=== PATIENT | female | born 1995 | race Caucasian/White ===

== ENCOUNTER 2019-10-05 13:15 | Outpatient (RCR) | payer OTHER, SELFPAY ==
--- NOTE | ~2019-10-05 | US_ITS ---
EXAMINATION: US OB follow up DATE: 10/05/2019 15:17 INDICATION: Decreased movement. TECHNIQUE: Real-time ultrasound of the pelvis was performed. COMPARISON: None. FINDINGS: There is a single living fetus in vertex presentation. The placenta is anterior. heart rate is 152 beats per minute (bpm). The amniotic fluid index is 9.8 cm, which is normal. The following biometric data were obtained: Biparietal diameter (BPD): 8.7 cm; head circumference (HC): 31.2 cm; abdominal circumference (AC): 30 .3 cm; femur length (FL): 6.6 cm. These measurements are concordant. Estimated weight is 2413 g +/- 362 g, which correlates with 63rd percentile when 11/18/19 is use d as estimated date of delivery. As single measurements, these parameters are each equal to the following estimated gestational ages: BPD: 35 weeks 1 days. HC: 35 weeks 0 days. AC: 34 weeks 2 days. FL: 34 weeks 1 days. estimated gestational age based solely on measurements from this exam is 34 weeks 5 days +/- 2 weeks 3 days. IMPRESSION: 1. Single living fetus in vertex presentation. 2. Estimated weight is 2413 g +/- 362 g, which correlates with 63rd percentile when 11/18/19 is used as estimated date of delivery. Reviewed, dictated and finalized at location A. IMPRESSION: 1. Single living fetus in vertex presentation. 2. Estimated weight is 2413 g +/- 362 g, which correlates with 63rd perc entile when 11/18/19 is used as estimated date of delivery.
[2019-10-05 14:40] VITALS: BP 119/77
== END 2019-11-14 07:56 | disposition home or self-care (01) ==
LOC: ANHOBOP 13:15
PROVIDERS: PCP Nurse Practitioner Family; Visit Provider Obstetrics & Gynecology
DX: O36.8130 Decreased fetal movements, third trimester, not applicable or unspecified (principal); Z3A.33 33 weeks gestation of pregnancy
CPT/HCPCS: 59025; 76816

== ENCOUNTER 2019-11-11 06:00 | Inpatient (IN) | payer OTHER, SELFPAY ==
[2019-11-11] VITALS (75 sets, daily range): BP systolic 106–169; BP diastolic 61–119; PULSE 80–138; RESP 20; TEMP 36.7–37.2; O2SAT 93–100; BMI 45.2
--- NOTE | 2019-11-11 06:56 | LDADM ---
This patient, Lynn Coy, was admitted to Labor/Delivery/Recovery 105 on 11/11/19 at 06:00. Plans for labor, pain management and were discussed with patient. Patient/family oriented to hospital policies and general routines including ID bracelet, bed and alarms, visiting hours, pain management, procedures, bathroom and other care routines, personal items, smoking policy, room service/diet and guest tray routines, security routines, and visiting hours. Patient/Family are encouraged to report perceived risks to care and to ask questions if they do not understand what they are told or what they should do. See OBIX for further documentation.
[2019-11-11 07:19] LABS: Basophils Percent Auto 0.2 % (0.2-1.2); Eosinophils Absolute Auto 0.1 K/mm3 (0-0.3); Eosinophils Percent Auto 1.1 % (0-4.4); Hematocrit 34.1 % (37.0-47.0); Hemoglobin 10.8 g/dL (12.0-15.0); Immature Granulocyte Absolute 0.04 K/mm3 (0.00-0.031); Immature Granulocyte Percent A 0.4 % (0-0.5); Lymphocytes Absolute Auto 2.47 K/mm3 (0.9-3.2); Lymphocytes Percent Auto 23.7 % (18.3-44.2); Mean Corpuscular HGB Conc 31.7 g/dl (32-36); Mean Corpuscular Hemoglobin 24.1 pg (26-34); Mean Corpuscular Volume 76.1 fl (80-100); Mean Platelet Volume 11.2 fl (7.4-10.4); Monocytes Absolute Auto 0.6 K/mm3 (0.1-0.6); Monocytes Percent Auto 5.9 % (2.6-8.5); Neutrophils Absolute Auto 7.2 K/mm3 (1.3-6.7); Neutrophils Percent Auto 68.7 % (45.5-73.1); Platelet Count Result 252 k/mm3 (150-375); Red Blood Count 4.48 M/mm3 (4.2-5.4); Red Cell Distribution Width 15.7 % (11.5-14.5); White Blood Count 10.4 K/mm3 (4.5-10.0)
--- NOTE | 2019-11-11 07:41 | PM.IMHP ---
H&P: HPI History of Present Illness Chief complaint: Induction of Labor Narrative: Lynn Coy is a 23 year old female at 39w0d gestation admitted for elective induction of labor at term. Doing well, no concerns. Good movement. No contractions. Review of Systems Constitutional: Constitutional: Reports no additional constitutional complaints Respiratory: Respiratory: Reports no additional respiratory complaints Gastrointestinal: Gastrointestinal: Reports no additional gastrointestinal complaints Genitourinary: Genitourinary: Reports no additional female genitourinary complaints Musculoskeletal: Musculoskeletal: Reports no additional musculoskeletal complaints Neurologic: Reports system reviewed and no additional complaints, except as documented Psychiatric: Psychiatric: Reports no additional psychiatric complaints [facility] Past Medical History Medical History (Updated 11/11/19 @ 07:45 by Stephan Vega DO) Anxiety Family History Family History Mother Fatty liver disease, nonalcoholic PCOS (polycystic ovarian syndrome) Social History Social History Smoking status: Former smoker Tobacco type: cigarettes Second hand tobacco smoke exposure: No Substance use: never Gender identity (if verbalized by the patient): Female Spiritual care concerns: No Meds Home Medications and Allergies Home Medications Medication Instructions Recorded Confirmed Type PNV no.[id number] 2 tablet PO 10/22/19 History [ Gummies] escitalopram oxalate [Lexapro] 10 mg PO DAILY 10/22/19 10/22/19 History ferrous sulfate [Iron (ferrous 325 mg PO DAILY 10/22/19 10/22/19 History sulfate)] Allergies Allergy/AdvReac Type Severity Reaction Status Date / Time latex Allergy Unknown Hives / Verified 09/20/18 13:52 Red Face Penicillins Allergy Unknown Anaphylactic Verified 09/20/18 13:52 Shock Cat Dander Allergy Mild ITCHING, Uncoded 09/20/18 13:53 Vital Signs Vital Signs - 24 hr 11/11/19 06:30 11/11/19 06:31 11/11/19 07:02 Pulse Rate 116 H 138 H 114 H Blood Pressure 132/91 H 119/78 132/83 11/11/19 07:31 Pulse Rate 114 H Blood Pressure 144/93 H Exam Const: General: comfortable and no acute distress Resp: Effort & Inspection: normal respiratory effort Cardio: Rate: regular rate GI: GI Palp: Yes Soft to palpation Other: gravid : External Female Exam: normal external appearance Other: Cervix: 3/50/-2. AROM performed, clear fluid @0740 Skin: General skin exam: normal color Neuro: Speech: normal speech Psych: Mental Status: mental status grossly normal H&P: Results Labs Labs: Short CBC 11/11/19 Range/Units 07:13 WBC 10.4 H (4.5-10.0) K/mm3 Hgb 10.8 L (12.0-15.0) g/dL Hct 34.1 L (37.0-47.0) % Plt Count 252 (150-375) k/mm3 Assessment and Plan Assessment and plan (1) Term : Code(s): Z34.90 - Encounter for supervision of normal , unspecified, unspecified trimester Status: Acute Assessment and Plan: IOL with pitocin per protocol Pain management as requested
[2019-11-11] MEDS: LACTATED RINGERS 1,000 ML 125 ML IV CONT ×2 (07:45→13:21)
[2019-11-11] MEDS: OXYTOCIN 30 UNITS/NS 500 ML 30 UNITS/500 ML BAG IV CONT (08:32)
--- NOTE | 2019-11-11 13:16 | WPDANESEPP ---
Anes - Eval Pre Procedure Procedure: labor pain management Date/Time: 11/11/19 13:16 Surgeon: garry Preop Diagnosis: Pain during labor Pre Op Diagnosis: Induction of Labor Patient Data Age: 23 Gender: F Height: 5 ft 7 in Weight: 131 kg Last Vital Signs Temp 98.4 F 11/11/19 11:10 Pulse 80 11/11/19 13:01 BP 169/109 H 11/11/19 13:01 Allergies Allergy/AdvReac Type Severity Reaction Status Date / Time latex Allergy Unknown Hives / Verified 09/20/18 13:52 Red Face Penicillins Allergy Unknown Anaphylactic Verified 09/20/18 13:52 Shock Cat Dander Allergy Mild ITCHING, Uncoded 09/20/18 13:53 Home Medications Medication Instructions Recorded Confirmed Type PNV no.[id number] 2 tablet PO 10/22/19 History [ Gummies] escitalopram oxalate [Lexapro] 10 mg PO DAILY 10/22/19 10/22/19 History ferrous sulfate [Iron (ferrous 325 mg PO DAILY 10/22/19 10/22/19 History sulfate)] Laboratory Tests 11/11/19 11/11/19 11/11/19 07:13 07:13 07:13 WBC 10.4 K/mm3 H K/mm3 (4.5-10.0) RBC 4.48 M/mm3 M/mm3 (4.2-5.4) Hgb 10.8 g/dL L g/dL (12.0-15.0) Hct 34.1 % L % (37.0-47.0) MCV 76.1 fl L fl (80-100) MCH 24.1 pg L pg (26-34) MCHC 31.7 g/dl L g/dl (32-36) RDW 15.7 % H % (11.5-14.5) Plt Count 252 k/mm3 k/mm3 (150-375) MPV 11.2 fl H fl (7.4-10.4) Immature Gran % (Auto) 0.4 % % (0-0.5) Neut % (Auto) 68.7 % % (45.5-73.1) Lymph % (Auto) 23.7 % % (18.3-44.2) [place] % (Auto) 5.9 % % (2.6-8.5) Eos % (Auto) 1.1 % % (0-4.4) Baso % (Auto) 0.2 % % (0.2-1.2) Lymph # (Auto) 2.47 K/mm3 K/mm3 (0.9-3.2) [place] # (Auto) 0.6 K/mm3 K/mm3 (0.1-0.6) Eos # (Auto) 0.1 K/mm3 K/mm3 (0-0.3) Baso # (Auto) 0.0 K/mm3 K/mm3 (0.0-0.1) Abs Immat Gran (auto) 0.04 K/mm3 H K/mm3 (0.00-0.031) Absolute Neuts (auto) 7.2 K/mm3 H K/mm3 (1.3-6.7) Absolute Nucleated RBC 0.0 K/mm3 K/mm3 (0.0-0.012) Nucleated RBC % 0.0 % % (0.0-0.2) RPR Pending Blood Type O Positive Antibody Screen Negative : gestational age (EDC 11/18/19) Patient hx anesthesia problems: none Family hx anesthesia problems: none PMFSH Past Medical History Medical History (Updated 11/11/19 @ 13:16 by Rebecca Borges CRNA) Anxiety Asthma Depression Seizure disorder Family History Family History Mother Fatty liver disease, nonalcoholic PCOS (polycystic ovarian syndrome) Social History Social History Smoking status: Former smoker Tobacco type: cigarettes Second hand tobacco smoke exposure: No Substance use: never Gender identity (if verbalized by the patient): Female Spiritual care concerns: No Exam Day of Procedure 11/11/19 13:16
--- NOTE | 2019-11-11 17:02 | PM.OBPRVD ---
OB - Delivery Note Procedure Delivery date: 11/11/19 Intrapartal events: None Induction method: AROM and per pitocin protocol Delivery monitor: external FHT Route of delivery: Laceration description: Perineal - 2nd Degree Delivery repair: vicryl Specimen: No Estimated blood loss (mL): 300 Anesthesia type: Epidural Baby Date of : 11/11/19 Time of : 16:24 Weeks of gestation at delivery: 39 gender: Male Weight (pounds): 8 Weight (ounces): 4 presentation: vertex position: Right Occiput Anterior Placenta delivery description: Spontaneous cord vessel description: 3 Vessels score one minute: 9 score five minutes: 9
[2019-11-11] MEDS: WITCH HAZEL 40 PADS 1 PAD TOPICAL (18:45)
[2019-11-11] MEDS: BENZOCAINE 20% AER SPR (*SP) 56 GM CAN 1 SPRAY TOPICAL (18:45)
--- NOTE | 2019-11-11 20:32 | OP_ITS ---
DATE OF PROCEDURE: 11/11/2019 PROCEDURE: Normal spontaneous vaginal delivery. PRE-DELIVERY DIAGNOSES: 1. Frwoew-ntfi-wfkl term gestation. 2. Obesity. 3. Anxiety. POST-DELIVERY DIAGNOSES: 1. Vsxcku-mbkz-gmxn term gestation. 2. Obesity. 3. Anxiety. ANESTHESIA: Epidural. ESTIMATED BLOOD LOSS: 300 mL. FINDINGS: 1. Single live male born on November 11, 2019 at 1624, weight 8 pounds 4 ounces, 9 and 9. 2. Second-degree perineal laceration repaired with 2-0 Vicryl. COMPLICATIONS: None apparent. SPECIMEN: None. BRIEF HISTORY: A 23-year-old, G2, P1, at 39 weeks and 0 days gestation, admitted for elective induction of labor at term. Induction was started with Pitocin per protocol and artificial rupture of membranes. Intrapartum course was uncomplicated. DESCRIPTION OF THE PROCEDURE: Once the patient was noted to be complete, the labor bed was broken down and the patient's legs were placed in stirrups for support. With contractions and maternal efforts, the presented in VIANCA position. Head was delivered. No nuchal cord noted. Anterior shoulder delivered with gentle traction followed by the posterior shoulder and the rest of the body. The was handed off to the mother. Delayed cord clamping of approximately 1 minute was performed. The cord was clamped and cut. Cord gases collected. With gentle traction on the umbilical cord, the placenta was delivered spontaneously. Fundal massage was applied. IV oxytocin was administered. Exam was performed to identify any lacerations. A second-degree perineal laceration noted. This was repaired with 2-0 Vicryl. Good hemostasis was noted. Fundus was firm. The patient tolerated the procedure well. All sponge and instrument counts were correct at the end of the procedure. D I MT: [place]
[2019-11-11] MEDS: ESCITALOPRAM OXALATE 10 MG TABLET PO (21:00)
[2019-11-11] MEDS: IBUPROFEN 600 MG TABLET PO (21:00)
[2019-11-12 06:07] LABS: Hemoglobin 9.5 g/dL (12.0-15.0)
[2019-11-12 06:26] LABS: Alanine Aminotransferase 10 U/L (4-35); Albumin Level 2.5 g/dL (3.5-5.1); Alkaline Phosphatase 181 U/L (38-126); Aspartate Amino Transferase 20 U/L (14-36); Bilirubin,Total < 0.1 mg/dL (0.2-1.3); Blood Urea Nitrogen 7 mg/dL (7-17); Calcium 8.1 mg/dL (8.4-10.2); Carbon Dioxide 23 mmol/L (22-30); Chloride 108 mmol/L (98-107); Estimated CRCL calculation 206 ml/min; Estimated Glomerular Filt Rate > 60; Glucose 111 mg/dL (65-105); Sodium 135 mmol/L (137-145)
[2019-11-12 09:32] VITALS: BP 135/84; PULSE 103; RESP 16; TEMP 36.6; O2SAT 96
[2019-11-12] MEDS: DOCUSATE SODIUM 100 MG CAPSULE PO ×2 (09:32→17:57)
[2019-11-12] MEDS: IBUPROFEN 600 MG TABLET PO ×2 (09:32→17:57)
[2019-11-12] MEDS: POLYSACCHARIDE IRON COMPLEX 150 MG CAPSULE PO ×2 (09:32→17:56)
[2019-11-12] MEDS: MULTIVIT/MIN/PREN/FOL AC/IRON TABLET 1 TAB PO (09:32)
--- NOTE | 2019-11-12 10:09 | P.PNOB_ITS ---
OB - PN: Subj Subjective Date/time seen: 11/12/19 10:09 Interval history: 23yo s/p on 11/10. Patient comments: no complaints and pain well controlled [place] baby status: doing well [place] feeding status: exclusively breast feeding Narrative: Pain well controlled, lochia decreasing. No fevers/chills. Doing well. OB - PN: Obj Data Labs CBC & Chem 7: 11/12/19 04:07 11/12/19 04:07 Labs: Laboratory Results - last 24 hr 11/12/19 11/12/19 04:07 04:07 Hgb 9.5 L Hct 30.0 L Sodium 135 L Potassium 4.0 Chloride 108 H Carbon Dioxide 23 BUN 7 Creatinine 0.50 L Estim Creat Clear Calc 206 Estimated GFR > 60 Glucose 111 H Calcium 8.1 L Total Bilirubin < 0.1 L AST 20 ALT 10 Alkaline Phosphatase 181 H Total Protein 5.0 L Albumin 2.5 L OB - PN A/P Assessment and Plan (1) (normal spontaneous vaginal delivery): Code(s): O80 - Encounter for full-term uncomplicated delivery Status: Acute Assessment and Plan: Routine care Ambulate Pain management OK for DC home after 24hours Time Spent With Patient Time: Total time spent is greater than 50% in coordination of care (as documented) at patient's floor/unit and/or counseling patient: Review of Systems Constitutional: Constitutional: Reports no additional constitutional complaints Respiratory: Respiratory: Reports no additional respiratory complaints Gastrointestinal: Gastrointestinal: Reports no additional gastrointestinal complaints Genitourinary: Genitourinary: Reports no additional female genitourinary complaints Musculoskeletal: Musculoskeletal: Reports no additional musculoskeletal complaints Neurologic: Reports system reviewed and no additional complaints, except as documented Psychiatric: Psychiatric: Reports no additional psychiatric complaints Exam Const: General: comfortable and no acute distress Resp: Effort & Inspection: normal respiratory effort Cardio: Rate: regular rate GI: GI Palp: No abdominal tenderness, Yes Soft to palpation, No Tenderness to palpation present (GI) and No Guarding due to palpation present (GI) Other: fundus firm Skin: General skin exam: normal color Neuro: Speech: normal speech Psych: Mental Status: mental status grossly normal
--- NOTE | 2019-11-12 10:12 | PM.OBDSVD ---
DS: Admitting Diagnosis Admitting Diagnosis Admitting Diagnosis: Encounter for supervision of normal , unspecified, unspecified trimester DS: Discharge Diagnosis Discharge Diagnosis (1) (normal spontaneous vaginal delivery): Code(s): O80 - Encounter for full-term uncomplicated delivery Status: Acute Assessment and Plan: Routine care Ambulate Pain management OK for DC home after 24hours OB - DS: Summary OB Procedures : None OB Procedures Intrapartum: Spontaneous Vag Delivery OB Procedures: : None Peripartum Data Delivery Method: Natural Vaginal Laceration description: Perineal - 2nd Degree Status at Discharge Functional status at discharge: independent ambulation Overall status at discharge: patient is progressing back to baseline Time Spent with Patient Time attestation: Total time spent providing and/or coordinating discharge services: Exam Const: General: comfortable and no acute distress Resp: Effort & Inspection: normal respiratory effort Cardio: Rate: regular rate GI: Other: fundus firm Skin: General skin exam: normal color Neuro: Speech: normal speech Psych: Mental Status: mental status grossly normal DS: Data Data Completed and Pending Labs on day of discharge: Labs from last 24 hours 11/12/19 11/12/19 04:07 04:07 Hgb 9.5 L Hct 30.0 L Sodium 135 L Potassium 4.0 Chloride 108 H Carbon Dioxide 23 BUN 7 Creatinine 0.50 L Estim Creat Clear Calc 206 Estimated GFR > 60 Glucose 111 H Calcium 8.1 L Total Bilirubin < 0.1 L AST 20 ALT 10 Alkaline Phosphatase 181 H Total Protein 5.0 L Albumin 2.5 L Discharge Plan Discharge Attending physician on discharge: Stephan Vega Discharging Clinician: Stephan Vega Patient Disposition: Home, Self-Care Activity: may shower, no straining and pelvic rest Diet: regular Patient Instructions: Antibiotic Form Stand Alone Forms: General Discharge Information Follow-up/Referrals: Stephan Vega DO [Physician] - Discharge Medications: New docusate sodium 100 mg Capsule 100 mg PO BID PRN (Reason: Constipation) Qty: 60 RF: 0 ibuprofen 600 mg Tablet 600 mg PO Q6H PRN (Reason: Cramping) Qty: 90 RF: 0 Continued ferrous sulfate [Iron (ferrous sulfate)] 325 mg (65 mg iron) Tablet 325 mg PO DAILY RF: 0 Gummies 400 mcg-35 mg- 25 mg-5 mg Tablet,Chewable 2 tablet PO RF: 0 escitalopram oxalate [Lexapro] 10 mg Tablet 10 mg PO DAILY Qty: 30 RF: 3 Date of admission: 11/11/19 06:00 Primary Care Provider: Candelario,Clemencia Cuello Admitting Provider: Stephan Vega Attending physician on admission: Stephan Vega
--- NOTE | 2019-11-12 11:39 | WPDANLDPN2 ---
Anes-Prog Note L&D Date/Time: 11/12/19 11:39 Comfortable throughout: labor and delivery Neuraxial method: epidural Epidural/Spinal procedure site: clean & non-tender Neuro status: Neuro function grossly intact. Cardiovascular status: normal Respiratory status: normal Airway patency: baseline Mental status: baseline Post-Op hydration status: normal Vital Signs: Last Vital Signs Temp 36.9 C 11/11/19 19:20 Pulse 90 11/11/19 19:20 Resp 20 11/11/19 19:20 BP 106/70 11/11/19 19:20 Pulse Ox 100 11/11/19 16:20 I/O: Intake & Output 11/11/19 11/12/19 11/12/19 23:59 07:59 15:59 Output Total 73 Balance -73 Post-procedural complaints: none Patient feedback: Patient satisfied with anesthetic care.
[2019-11-12 18:37] VITALS: BP 137/84; RESP 18; TEMP 36.8; O2SAT 96
--- NOTE | 2019-11-12 20:42 | PC.NURSE ---
Patient viewed the discharge video Mother & Baby Care, The First Two Weeks . Patient was given the opportunity and encouraged to ask questions. Patient verbalized understanding of information shared and has been given the mother/baby guide for home reference.
--- NOTE | 2019-11-12 20:53 | PC.NURSE ---
November 12, [address] Vega called and informed patient does not desire to be discharged this evening.
[2019-11-12] MEDS: ESCITALOPRAM OXALATE 10 MG TABLET PO (20:58)
[2019-11-13] MEDS: IBUPROFEN 600 MG TABLET PO (04:39)
[2019-11-13 09:11] VITALS: BP 132/76; PULSE 94; RESP 16; TEMP 36.8; O2SAT 96
[2019-11-13] MEDS: DOCUSATE SODIUM 100 MG CAPSULE PO (09:11)
[2019-11-13] MEDS: MULTIVIT/MIN/PREN/FOL AC/IRON TABLET 1 TAB PO (09:11)
[2019-11-13] MEDS: POLYSACCHARIDE IRON COMPLEX 150 MG CAPSULE PO (09:11)
[2019-11-14 08:49] LABS: Rapid Plasma Reagin Non-Reactive (NonReactive)
[2019-11-15 08:01] VITALS: BP 121/80; PULSE 79; RESP 16; TEMP 36.5
== END 2019-11-13 13:36 | disposition home or self-care (01) | DRG 806 ==
LOC: ANHLDR 06:09 → ANHOB2 19:17
PROVIDERS: Admitting Provider Obstetrics & Gynecology; PCP Nurse Practitioner Family; Visit Provider Obstetrics & Gynecology
DX: O99.344 Other mental disorders complicating childbirth (principal); O99.354 Diseases of the nervous system complicating childbirth; Z37.0 Single live birth; Z3A.39 39 weeks gestation of pregnancy; F41.9 Anxiety disorder, unspecified; O70.1 Second degree perineal laceration during delivery; O99.214 Obesity complicating childbirth; E66.9 Obesity, unspecified; G40.909 Epilepsy, unspecified, not intractable, without status epilepticus; O99.52 Diseases of the respiratory system complicating childbirth; J45.909 Unspecified asthma, uncomplicated
CPT/HCPCS: 36415; 80053; 85014; 85018; 85025; 86592; 86850; 86900; 86901; A9270; J2590; J2795; J7120

== ENCOUNTER 2020-10-14 16:19 | Emergency (ER) | payer OTHER, SELFPAY ==
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
[2020-10-14 16:26] VITALS: BP 157/105; PULSE 98; RESP 20; TEMP 36.8; O2SAT 100
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
== END 2020-10-14 16:55 | disposition home or self-care (01) ==
PROVIDERS: Emergency Provider Nurse Practitioner; PCP Nurse Practitioner Family
DX: M25.511 Pain in right shoulder (principal); Z87.891 Personal history of nicotine dependence; J45.909 Unspecified asthma, uncomplicated; F41.9 Anxiety disorder, unspecified; F32.9 Major depressive disorder, single episode, unspecified
CPT/HCPCS: 73000; 99213; G0463

== ENCOUNTER 2020-11-14 10:54 | Emergency (ER) | payer OTHER, SELFPAY ==
[2020-11-14 11:00] VITALS: BP 150/97; PULSE 107; RESP 18; TEMP 37.3; O2SAT 98
[2020-11-14 11:15] VITALS: BP 120/88
--- NOTE | 2020-11-14 12:10 | ED.GENADULT ---
HPI - General Adult General Chief complaint: Upper Respiratory Infection Stated complaint: Sore Throat, chills, body aches, congestion, Time Seen by Provider: 11/14/20 11:25 Source: patient and RN notes reviewed Mode of arrival: ambulatory Limitations: no limitations History of Present Illness HPI narrative: 24-year-old female presents with complaints of upper respiratory infection, sore throat, some facial congestion, facial pressure, intermittent dizziness and nausea for the past 7 days. Lynn reports increasing symptoms with chills, body aches, and fever throughout the night. Rachana and Tylenol ES last today without relief. No facial swelling.? Cough without chest congestion. ?Nasal congestion and rhinorrhea. Sore throat. ?Pain is bilateral. ?Hurts to swallow. Fevers as high as 100.3F axillary with chills and without sweats. No drooling, neck or throat swelling. No voice change. Nausea without vomiting or abdominal pain. Tolerating liquids well. ?Denies chills, dyspnea, difficulty swallowing, jaw pain, dental pain, foreign body sensation, and rash. No chest pain or shortness of breath. No loss of consciousness, syncopal episodes, seizure activity, or falls. LMP 2 months ago per Lynn related to control. Remains active. The patient reports she has not been diagnosed with COVID-19. The patient reports she received Luca-Luca COVID-19 vaccine. The patient reports she is not waiting for the results of a COVID-19 lab test. The patient reports she does not have weakness, fatigue, or myalgia. The patient reports she does not have a worsening cough. The patient reports she does not have any loss of taste or smell and diarrhea. Denies recent traveling. Denies concerns for COVID-19 or exposures. At this time, the patient is not suspected of having COVID-19.? Some parts of this dictation were generated by voice recognition software and may contain typographical and/or grammatical inaccuracies. Related Data Home Medications Medication Instructions Recorded Confirmed ferrous sulfate [Iron (ferrous 325 mg PO BID 10/22/19 11/14/20 sulfate)] bupropion HCl [Wellbutrin SR] 150 mg PO DAILY 10/14/20 11/14/20 trazodone 50 mg PO HS 10/14/20 11/14/20 Allergies Allergy/AdvReac Type Severity Reaction Status Date / Time latex Allergy Unknown Hives / Verified 11/14/20 11:22 Red Face Penicillins Allergy Unknown Anaphylactic Verified 11/14/20 11:22 Shock Cat Dander Allergy Mild ITCHING, Uncoded 09/20/18 13:53 Review of Systems Review of Systems: Narrative: CONSTITUTIONAL: Complains of low-grade fever, chills. Denies sweats. EYES: Denies visual changes, redness, discharge. ENT: Complains of rhinorrhea, congestion, facial congestion and pressure, sore throat. Denies otalgia. CARDIOVASCULAR: Denies chest pain, palpitations, edema. RESPIRATORY: Denies dyspnea, wheezing. Complaints of cough. GASTROINTESTINAL: Denies abdominal pain, vomiting, diarrhea. Complains of intermittent nausea. GENITOURINARY: Denies dysuria, hematuria, abnormal discharge SKIN: Denies rash or itching. MUSCULOSKELETAL: Denies acute back pain, joint pain, or myalgia. Complaints of body aches. NEUROLOGIC: Denies numbness or focal weakness. Complains of dizziness, intermittent MORLEY. PSYCHIATRIC: Denies anxiety or depression. All other systems reviewed & are unremarkable except as noted in HPI and below. [facility] Past Medical History Medical History (Updated 11/15/20 @ 00:01 by Bj Silva) Anxiety Asthma Depression History of PCOS (normal spontaneous vaginal delivery) Seizure disorder Surgical History Surgical History (Updated 11/14/20 @ 12:37 by CLAYTON Amaya) No significant past surgical history Family History Family History (Updated 11/14/20 @ 12:38 by CLAYTON Amaya) Mother Fatty liver disease, nonalcoholic PCOS (polycystic ovarian syndrome) Asthma Father Unknown family medical histo
[2020-11-14 12:15] VITALS: BP 128/86; BP 147/93; BP 153/77
== END 2020-11-14 12:32 | disposition home or self-care (01) ==
PROVIDERS: Emergency Provider Nurse Practitioner Family; PCP Nurse Practitioner Family
DX: J32.9 Chronic sinusitis, unspecified (principal); J02.9 Acute pharyngitis, unspecified; F17.210 Nicotine dependence, cigarettes, uncomplicated; J45.909 Unspecified asthma, uncomplicated; F41.9 Anxiety disorder, unspecified; F32.9 Major depressive disorder, single episode, unspecified; E28.2 Polycystic ovarian syndrome
CPT/HCPCS: 87081; 87880; 99213; G0463

== ENCOUNTER 2021-05-18 08:48 | Emergency (ER) | payer OTHER, SELFPAY ==
--- NOTE | 2021-05-18 08:53 | ED.EAR ---
HPI - Ear Problem General Chief complaint: Ear Stated complaint: ear pain Time Seen by Provider: 05/18/21 08:54 Source: patient and RN notes reviewed History of Present Illness HPI Narrative: Patient is a 25-year-old female who presents the urgent care with complaints of bilateral ear pain, congestion, cough and headache. Patient states that she has been taking Excedrin, Rachana and Zyrtec. Patient denies of any known exposures to COVID. 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 Patient denies any fevers, nausea, vomiting, shortness of breath or chest pain. Patient has had her COVID-vaccine. No other acute complaints. No acute distress noted. Patient aware of the plan of care. Some parts of this dictation were generated by voice recognition software and may contain typographical and/or grammatical inaccuracies. Related Data Home Medications Medication Instructions Recorded Confirmed bupropion HCl [Wellbutrin SR] 150 mg PO DAILY 10/14/20 05/18/21 trazodone 50 mg PO HS 10/14/20 05/18/21 Allergies Allergy/AdvReac Type Severity Reaction Status Date / Time latex Allergy Unknown Hives / Verified 05/18/21 09:06 Red Face Penicillins Allergy Unknown Anaphylactic Verified 05/18/21 09:06 Shock Cat Dander Allergy Mild ITCHING, Uncoded 09/20/18 13:53 Review of Systems Review of Systems: CONSTITUTIONAL: Denies fever, chills, or sweats. EYES: Denies visual changes, redness, or discharge. ENT: Reports of bilateral ear pain, congestion and postnasal drainage CARDIOVASCULAR: Denies chest pain, palpitations, or edema. RESPIRATORY: Reports a cough without dyspnea GASTROINTESTINAL: Denies abdominal pain, nausea, vomiting, or diarrhea. GENITOURINARY: Denies dysuria or hematuria. SKIN: Denies rash or itching. MUSCULOSKELETAL: Denies back pain, joint pain, or myalgia. NEUROLOGIC: Reports of headache All other systems reviewed are negative, except as documented in HPI. [facility] Past Medical History Medical History (Updated 05/18/21 @ 09:08 by CLAYTON Dunne) Anxiety Asthma Depression History of PCOS (normal spontaneous vaginal delivery) Seizure disorder Surgical History Surgical History (Updated 11/14/20 @ 12:37 by CLAYTON Amaya) No significant past surgical history Family History Family History (Updated 11/14/20 @ 12:38 by CLAYTON Amaya) Mother Fatty liver disease, nonalcoholic PCOS (polycystic ovarian syndrome) Asthma Father Unknown family medical history Social History Social History (Updated 11/14/20 @ 12:39 by CLAYTON Amaya) Smoking packs per day: 0.25 Smoking cigarettes per day: 5.0 Years smoked: 1 Smoking pack-years: 0.25 Smoking status: Current every day smoker Tobacco type: cigarettes Second hand tobacco smoke exposure: Yes Alcohol intake: current Substance use: never Substance use type: does not use Gender identity (if verbalized by the patient): Female Sexual Orientation (if Verbalized by the Patient): Straight or Heterosexual Spiritual care concerns: No Comments At the time of my signature, I reviewed and agree with the nursing past medical, surgical, social, and family history. There is no relevant family history pertinent to the patient complaint. Exam Narrative: GENERAL: This is a well-nourished, well-developed patient, in no apparent distress. HEAD: normocephalic, atraumatic. EYES: PERRL. Sclera clear/white. Vision is grossly intact. EARS: External ears normal, auditory canals clear and without drainage, TMs normal without perforation. Hearing grossly intact. NOSE: External nose normal with no obvious nasal discharge, nares without redness, clear rhinorrhea. THROAT: Mucous membranes moist, posterior pharynx clear. Moderate postnasal drainage NECK: Neck supple CARDIOVASCULAR: Sinus tachycardia RESPIRATORY: Clear to auscultation. Breath sounds equal bilaterally. No wheezes, rales, or rhonch
[2021-05-18 08:56] VITALS: BP 144/83; PULSE 120; RESP 20; TEMP 37.2; O2SAT 97
== END 2021-05-18 09:10 | disposition home or self-care (01) ==
PROVIDERS: Emergency Provider Nurse Practitioner Family; PCP Nurse Practitioner Family
DX: J06.9 Acute upper respiratory infection, unspecified (principal); F17.210 Nicotine dependence, cigarettes, uncomplicated; J45.909 Unspecified asthma, uncomplicated; E28.2 Polycystic ovarian syndrome; F41.9 Anxiety disorder, unspecified; F32.A Depression, unspecified
CPT/HCPCS: 99213; G0463

== ENCOUNTER 2022-01-14 14:49 | Emergency (ER) | payer OTHER, SELFPAY ==
--- NOTE | ~2022-01-14 | US_ITS ---
EXAMINATION: US pelvic complete w TV DATE: 01/14/2022 16:51 INDICATION: Left pelvic pain Comparison:No prior studies for comparison. TECHNIQUE: Multiple transabdominal and endovaginal sonographic images of the pelvis performed. FINDINGS: The uterus measures 6.9 x 5.8 x 5.5 cm. There is a nabothian cyst. The endometrial complex is not visualized. The right ovary measures 4.4 x 2.5 x 1.4 cm and the left ovary measures 4 x 2.8 x 1.3 cm. There are small follicles in each ovary. Normal doppler signal in both ovaries. There is no free fluid in the pelvis. There are no abnormal masses seen on either side. IMPRESSION: 1. Heterogeneous uterus without clear delineation of the endometrium. Otherwise, unremarkable pelvic ultrasound. Reviewed, dictated and finalized at location A. IMPRESSION: 1. Heterogeneous uterus without clear delineation of the endometrium. Otherwise , unremarkable pelvic ultrasound.
[2022-01-14 14:51] VITALS: BP 140/80; PULSE 93; RESP 16; TEMP 36.3; O2SAT 99
[2022-01-14 15:10] LABS: Basophils Percent Auto 0.4 % (0.2-1.2); Eosinophils Absolute Auto 0.2 K/mm3 (0-0.3); Hematocrit 45.2 % (37.0-47.0); Hemoglobin 14.5 g/dL (12.0-15.0); Immature Granulocyte Absolute 0.01 K/mm3 (0.00-0.031); Immature Granulocyte Percent A 0.1 % (0-0.5); Lymphocytes Absolute Auto 2.55 K/mm3 (0.9-3.2); Lymphocytes Percent Auto 31.8 % (18.3-44.2); Mean Corpuscular HGB Conc 32.1 g/dl (32-36); Mean Corpuscular Hemoglobin 27.5 pg (26-34); Mean Corpuscular Volume 85.8 fl (80-100); Mean Platelet Volume 10.1 fl (7.4-10.4); Monocytes Absolute Auto 0.5 K/mm3 (0.1-0.6); Monocytes Percent Auto 5.7 % (2.6-8.5); Neutrophils Absolute Auto 4.8 K/mm3 (1.3-6.7); Platelet Count Result 317 k/mm3 (150-375); Red Blood Count 5.27 M/mm3 (4.2-5.4); Red Cell Distribution Width 13.4 % (11.5-14.5)
[2022-01-14 15:16] LABS: Alanine Aminotransferase 73 U/L (6-35); Albumin Level 4.5 g/dL (3.5-5.1); Alkaline Phosphatase 119 U/L (38-126); Anion Gap 14 mmol/L (8-16); Aspartate Amino Transferase 64 U/L (14-36); Bilirubin,Total 0.2 mg/dL (0.2-1.3); Blood Urea Nitrogen 19 mg/dL (7-17); Calcium 9.3 mg/dL (8.4-10.2); Carbon Dioxide 24 mmol/L (22-30); Chloride 105 mmol/L (98-107); Estimated CRCL calculation 117 ml/min; Estimated Glomerular Filt Rate > 60; Glucose 89 mg/dL (65-110); Lipase 89 U/L (23-300); Potassium 3.8 mmol/L (3.4-5.0); Sodium 143 mmol/L (137-145)
[2022-01-14 15:30] LABS: Appearance Urine Clear (Clear); Bilirubin Urine Negative (Negative); Blood Urine Negative (Negative); Color Urine Yellow (Yellow); Glucose Urine UA Negative (Negative); Ketones Urine Negative (Negative); Leukocyte Esterase Ur Negative LEU/UL (Negative); Nitrate Urine Negative (Negative); Protein Urine Negative (Negative); Specific Grav Ur >= 1.030 (1.001-1.035); Urobilinogen Urine 0.2 mg/dL (<2.0); pH Urine 5.5 (5.0-9.0)
[2022-01-14 16:02] LABS: Mucus Urine Rare /lpf; RBC Urine 0-2 /hpf (0-2); Squamous Epithelial Cell Urine Few /hpf (Few)
[2022-01-14 16:03] LABS: Add Urine Microscopic? YES
--- NOTE | 2022-01-14 16:08 | ED.ABDPAIN ---
HPI - Abdominal Pain General Chief Complaint: Abdominal Pain Stated Complaint: abd pain Time Seen by Provider: 01/14/22 16:00 History of Present Illness HPI narrative: 26-year-old female presents to the emergency room today for pain in the left pelvic area. She reports having a history of PCOS. She says that she feels like the pain is in the ovary. She says that radiates into her left low back and into her left leg. No nausea or vomiting or diarrhea. No fever or chills. She does not have regular periods. She says that her last menses was in the summer 2020. She denies any chance of current . She reports that the pain started this morning around 730. Related Data Home Medications Medication Instructions Recorded Confirmed bupropion HCl 150 mg tablet,12 hr 150 mg PO DAILY 10/14/20 07/23/21 sustained-release (Wellbutrin SR) trazodone 50 mg tablet 50 mg PO HS 10/14/20 07/23/21 ergocalciferol (vitamin D2) 50,000 unit PO 07/23/21 07/23/21 unit tablet Allergies Allergy/AdvReac Type Severity Reaction Status Date / Time latex Allergy Unknown Hives / Verified 01/14/22 15:59 Red Face Penicillins Allergy Unknown Anaphylactic Verified 01/14/22 15:59 Shock Cat Dander Allergy Mild ITCHING, Uncoded 01/14/22 15:59 Review of Systems Review of Systems: CONSTITUTIONAL: Denies fever, chills, or sweats. EYES: Denies visual changes, redness, or discharge. ENT: Denies rhinorrhea, congestion, sore throat, or otalgia. CARDIOVASCULAR: Denies chest pain, palpitations, or edema. RESPIRATORY: Denies cough or dyspnea. GASTROINTESTINAL: As per HPI GENITOURINARY: Denies dysuria or hematuria. SKIN: Denies rash or itching. MUSCULOSKELETAL: Denies back pain, joint pain, or myalgia. NEUROLOGIC: Denies headache, numbness, dizziness, or weakness. PSYCHIATRIC: Denies anxiety or depression. [facility] Past Medical History Medical History Anxiety Asthma Depression History of PCOS (normal spontaneous vaginal delivery) Seizure disorder Surgical History Surgical History No significant past surgical history Family History Family History Mother Fatty liver disease, nonalcoholic PCOS (polycystic ovarian syndrome) Asthma Father Unknown family medical history Social History Social History Smoking packs per day: 0.25 Smoking cigarettes per day: 5.0 Years smoked: 1 Smoking pack-years: 0.25 Smoking status: Former smoker Tobacco type: cigarettes Second hand tobacco smoke exposure: Yes Alcohol intake: current Alcohol use details: 1x a month Substance use: never Substance use type: does not use 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 HEAD: Normocephalic, atraumatic. NECK: Supple. No adenopathy or masses. No carotid bruits or JVD CHEST: Clear to auscultation. No respiratory distress. No wheezes rales or rhonchi HEART: Regular rate and rhythm. No murmur heard. Normal peripheral pulses. ABDOMEN: Soft, left pelvic tenderness, nondistended, normal active bowel sounds. EXTREMITIES: Normal range of motion. No edema. SKIN: Warm, dry, no rash. NEURO: No focal deficits. Alert and oriented x3. PSYCH: Normal mood and affect. Course Reevaluation(s) Reevaluation #1: Pt reports that pain is much better. We discussed doing an abdominal CT given that her pelvic US was normal. Pt is declining this. She would like to go home and take anti inflammatories and agress to return if symptoms worsen. Date: 01/14/22 Ti
[2022-01-14] MEDS: KETOROLAC 30 MG/ML VIAL (*BKC) IV PUSH (16:41)
--- NOTE | 2022-01-14 16:42 | PC.NURSE ---
Patient refusing IV at this time. MENDER HAND notified
== END 2022-01-14 18:35 | disposition home or self-care (01) ==
PROVIDERS: Emergency Medicine; Emergency Provider Nurse Practitioner Family; PCP Nurse Practitioner Family
DX: R10.2 Pelvic and perineal pain (principal); F41.9 Anxiety disorder, unspecified; J45.909 Unspecified asthma, uncomplicated; F32.9 Major depressive disorder, single episode, unspecified; G40.909 Epilepsy, unspecified, not intractable, without status epilepticus
CPT/HCPCS: 36415; 76830; 76856; 80053; 81001; 81025; 83690; 85025; 96374; 99284; J1885

== ENCOUNTER 2022-08-24 08:20 | Emergency (ER) | payer OTHER, SELFPAY ==
[2022-08-24 08:26] VITALS: BP 141/81; PULSE 93; RESP 16; TEMP 36.4; O2SAT 99
--- NOTE | 2022-08-24 08:41 | ED.GENADULT ---
HPI - General Adult General Chief complaint: Eye Problems Stated complaint: Eye Problem Source: patient Mode of arrival: ambulatory Limitations: no limitations History of Present Illness HPI narrative: Patient presents for evaluation of bilateral eye irritation since 0300 this morning. She indicates she initially experienced burning and itching sensation to her eyes yesterday. She woke up this morning with her eyes matted shut. She reports a mucopurulent discharge from both eyes. She does wear glasses but not contacts. No known recent exposure to pink eye. She has some blurred vision 2/2 drainage, which clears when she blinks. Denies any other visual disturbance. Related Data Home Medications Medication Instructions Recorded Confirmed bupropion HCl 150 mg tablet,12 hr 150 mg PO DAILY 10/14/20 07/23/21 sustained-release (Wellbutrin SR) trazodone 50 mg tablet 50 mg PO HS 10/14/20 07/23/21 ergocalciferol (vitamin D2) 50,000 unit PO 07/23/21 07/23/21 unit tablet tirzepatide 7.5 mg/0.5 mL mg subcut 08/24/22 subcutaneous pen injector (Mounjaro) Allergies Allergy/AdvReac Type Severity Reaction Status Date / Time latex Allergy Unknown Hives / Verified 01/14/22 15:59 Red Face Penicillins Allergy Unknown Anaphylactic Verified 01/14/22 15:59 Shock Cat Dander Allergy Mild ITCHING, Uncoded 01/14/22 15:59 Review of Systems Review of Systems: CONSTITUTIONAL: Denies fever, chills, or sweats. EYES: Reports redness and drainage from both eyes. Reports pruritus and burning sensation to both eyes. Reports blurred vision 2/2 eye discharge which clears with blinking ENT: Denies rhinorrhea, congestion, sore throat, or otalgia. CARDIOVASCULAR: Denies chest pain, palpitations, or edema. RESPIRATORY: Denies cough or dyspnea. GASTROINTESTINAL: Denies abdominal pain, nausea, vomiting, or diarrhea. GENITOURINARY: Denies dysuria or hematuria. SKIN: Denies rash or itching. MUSCULOSKELETAL: Denies back pain, joint pain, or myalgia. NEUROLOGIC: Denies headache, numbness, dizziness, or weakness. PSYCHIATRIC: Denies anxiety or depression. [facility] Past Medical History Medical History Anxiety Asthma Depression History of PCOS (normal spontaneous vaginal delivery) Seizure disorder Surgical History Surgical History No significant past surgical history Family History Family History Mother Fatty liver disease, nonalcoholic PCOS (polycystic ovarian syndrome) Asthma Father Unknown family medical history Social History Social History Smoking packs per day: 0.25 Smoking cigarettes per day: 5.0 Years smoked: 1 Smoking pack-years: 0.25 Smoking status: Former smoker Tobacco type: cigarettes Second hand tobacco smoke exposure: Yes Alcohol intake: current Alcohol use details: 1x a month Substance use: never Substance use type: does not use Living arrangements: with family Occupation/Education: occupation 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 HEAD: Normocephalic, atraumatic. EYES: PERRLA and EOMI. Bilateral conjunctival injection with mucopurulent discharge noted on eyelashes ENT: Nares clear, no rhinorrhea or epistaxis. Mucous membranes moist. Oropharynx without tonsillar hypertrophy exudate or other lesions. Bilateral TMs pearly bañuelos nonbulging NECK: Supple. No adenopathy or masses. No carotid bruits or JVD CHEST: Clear to auscultation. No respiratory distress. No wheez
== END 2022-08-24 08:48 | disposition home or self-care (01) ==
PROVIDERS: Emergency Provider Nurse Practitioner; PCP Nurse Practitioner Family
DX: H10.33 Unspecified acute conjunctivitis, bilateral (principal); F17.210 Nicotine dependence, cigarettes, uncomplicated; J45.909 Unspecified asthma, uncomplicated; E28.2 Polycystic ovarian syndrome; F41.9 Anxiety disorder, unspecified; F32.A Depression, unspecified
CPT/HCPCS: 99213; G0463

== ENCOUNTER 2023-02-03 17:25 | Emergency (ER) | payer BC, SELFPAY ==
--- NOTE | ~2023-02-03 | XR_ITS ---
EXAMINATION: XR chest 2V DATE: 02/03/2023 17:46 INDICATION: Cough TECHNIQUE: PA and lateral views of the chest are obtained. COMPARISON: None available FINDINGS: The lungs are free of acute opacities. No pleural effusion or pneumothorax. The cardiomedia stinal silhouette is normal. The visualized bones and soft tissues are unremarkable. IMPRESSION: 1. No acute cardiopulmonary abnormality. Reviewed, dictated and finalized at location F.
[2023-02-03 17:31] VITALS: BP 134/86; PULSE 84; RESP 16; TEMP 36.3; O2SAT 98
--- NOTE | 2023-02-03 18:07 | ED.GENADULT ---
HPI - General Adult General Chief complaint: Upper Respiratory Infection Stated complaint: Cough Source: patient Mode of arrival: ambulatory Limitations: no limitations History of Present Illness HPI narrative: Patient presents for evaluation of sick symptoms. She indicates she has had a cough for the last few weeks. She has some exertional dyspnea. She reports sore throat, nausea and exertional dyspnea but denies any fever, vomiting, diarrhea or shortness of breath at rest. She has tried some [id number] cough and cold medicine without considerable improvement in her symptoms or after. Her and children are also sick. She does not smoke. Related Data Home Medications Medication Instructions Recorded Confirmed bupropion HCl 150 mg 24 hr tablet, mg PO 02/03/23 extended release etonogestrel 0.12 mg-ethinyl vag ring vaginal 02/03/23 estradiol 0.015 mg/24 hr vaginal ring (NuvaRing) tirzepatide 5 mg/0.5 mL mg subcut 02/03/23 subcutaneous pen injector (Mounjaro) trazodone 50 mg tablet mg 02/03/23 Allergies Allergy/AdvReac Type Severity Reaction Status Date / Time latex Allergy Unknown Hives / Verified 02/03/23 17:41 Red Face Penicillins Allergy Unknown Anaphylactic Verified 02/03/23 17:41 Shock Cat Dander Allergy Mild ITCHING, Uncoded 02/03/23 17:41 Review of Systems Review of Systems: CONSTITUTIONAL: Denies fever, chills, or sweats. EYES: Denies visual changes, redness, or discharge. ENT: Reports sore throat. Denies otalgia. CARDIOVASCULAR: Denies chest pain, palpitations, or edema. RESPIRATORY: Reports cough and exertional dyspnea. Denies shortness of breath at rest GASTROINTESTINAL: Reports nausea. Denies abdominal pain, vomiting, or diarrhea. GENITOURINARY: Denies dysuria or hematuria. SKIN: Denies rash or itching. MUSCULOSKELETAL: Denies back pain, joint pain, or myalgia. NEUROLOGIC: Denies headache, numbness, dizziness, or weakness. PSYCHIATRIC: Denies anxiety or depression. [facility] Past Medical History Medical History Anxiety Asthma Depression History of PCOS (normal spontaneous vaginal delivery) Seizure disorder Surgical History Surgical History No significant past surgical history Family History Family History Mother Fatty liver disease, nonalcoholic PCOS (polycystic ovarian syndrome) Asthma Father Unknown family medical history Social History Social History Smoking packs per day: 0.25 Smoking cigarettes per day: 5.0 Years smoked: 1 Smoking pack-years: 0.25 Smoking status: Former smoker Tobacco type: cigarettes Second hand tobacco smoke exposure: Yes Alcohol intake: current Alcohol use details: 1x a month Substance use: never Substance use type: does not use Living arrangements: with family Occupation/Education: occupation Additional occupation/education comments: [employer] Gender identity (if verbalized by the patient): Female Sexual Orientation (if Verbalized by the Patient): Straight or Heterosexual Spiritual care concerns: No Exam Narrative: GENERAL: Well-appearing, well-nourished, and in no acute distress. HEAD: Normocephalic, atraumatic. EYES: PERRLA and EOMI. ENT: Nares clear, no rhinorrhea or epistaxis. Mucous membranes moist. Oropharynx without tonsillar hypertrophy exudate or other lesions. Bilateral TMs pearly bañuelos nonbulging NECK: Supple. No adenopathy or masses. No carotid bruits or JVD CHEST: Occasional cough present on exam. Clear to auscultation. No respiratory distress. No wheezes rales or rhonchi HEART: Regular rate and rhythm. No murmur heard. Normal peripheral pulses. ABDOMEN: Soft, nontender, nondistended, normal active bowel
== END 2023-02-03 18:08 | disposition home or self-care (01) ==
PROVIDERS: Emergency Provider Nurse Practitioner; PCP Nurse Practitioner Family
DX: B34.9 Viral infection, unspecified (principal); Z20.822 Contact with and (suspected) exposure to COVID-19; Z87.891 Personal history of nicotine dependence; J45.909 Unspecified asthma, uncomplicated; E28.2 Polycystic ovarian syndrome
CPT/HCPCS: 71046; 87426; 87804; 99213; C9803; G0463